=== PATIENT | female | born 1940 | race Caucasian/White ===

== ENCOUNTER 2023-12-26 04:30 | Day surgery (SDC) | payer OTHER ==
[~2023-12-26] VITALS: Ht 154.9 cm; Wt 72.1 kg
[2023-12-26] MEDS ORDERED: ACETAMINOPHEN 500 MG TABLET ONE (04:56)
[2023-12-26] MEDS ORDERED: ONDANSETRON 4 MG ODT TAB ONE (04:56)
[2023-12-26] MEDS ORDERED: GABAPENTIN 400 MG CAPSULE ONE (04:57)
[2023-12-26] MEDS ORDERED: oxyCODONE HCL 10 MG TAB.ER.12H PO ONE ×2 (04:57→05:00)
[2023-12-26] MEDS ORDERED: SCOPOLAMINE HYDROBROMIDE 1 MG PATCH .72 H (TRANSDERM-SCOP) TD ONE (04:57)
[2023-12-26] MEDS ORDERED: CELECOXIB 200 MG CAPSULE ONE (04:57)
[2023-12-26] MEDS: ACETAMINOPHEN 500 MG TABLET PO ONE (05:25)
[2023-12-26] MEDS: SCOPOLAMINE HYDROBROMIDE 1 MG PATCH .72 H (TRANSDERM-SCOP) TD ONE (05:25)
[2023-12-26] MEDS: GABAPENTIN 400 MG CAPSULE PO ONE (05:25)
[2023-12-26] MEDS: CELECOXIB 200 MG CAPSULE PO ONE (05:25)
[2023-12-26] MEDS: ONDANSETRON 4 MG ODT TAB PO ONE (05:25)
[2023-12-26] MEDS: VANCOMYCIN HCL 1,000 MG in NS 250 ML IV ONE (05:30)
[2023-12-26 05:39] VITALS: O2SAT 98
[2023-12-26] MEDS ORDERED: ceFAZolin SODIUM 2 GM in D5W 50 ML IV ONE (07:00)
[2023-12-26] MEDS ORDERED: MIDAZOLAM HCL 2 MG/2 ML VIAL (VERSED) ONE (07:20)
[2023-12-26] MEDS ORDERED: NS IRRIG SOLN 5000 ML IR ONE (07:28)
[2023-12-26] MEDS ORDERED: EPINEPHrine HCL 1 MG/ML VIAL ONE (07:28)
[2023-12-26] MEDS ORDERED: TRANEXAMIC ACID 1,000 MG/10 ML VIAL ONE (07:28)
[2023-12-26] MEDS ORDERED: LR 1,000 ML IV.SOLN IV ONE (07:28)
[2023-12-26] MEDS ORDERED: SEVOFLURANE 15 MIN GAS INH ONE (07:28)
[2023-12-26] MEDS ORDERED: ONDANSETRON HCL 4 MG/2 ML VIAL ONE (07:28)
[2023-12-26] MEDS ORDERED: POLYMYXIN B SULFATE 500,000 UNITS VIAL ONE (07:28)
[2023-12-26] MEDS ORDERED: PROPOFOL 200MG/ 20ML VIAL (DIPRIVAN) IV ONE (07:28)
[2023-12-26] MEDS ORDERED: VANCOMYCIN HCL 1000 MG/VIAL IV ONE (07:28)
[2023-12-26] MEDS ORDERED: ROPIVACAINE HCL/PF 5 MG/ML 0.5% 30 ML VIAL ONE (07:28)
[2023-12-26] MEDS ORDERED: BUPIVACAINE /DEX PF 0.75% SPINAL 2 ML AMP INJ ONE (07:28)
[2023-12-26] MEDS ORDERED: fentaNYL CITRATE/PF 100 MCG/2 ML AMP IVP PRN (08:45)
[2023-12-26] MEDS ORDERED: ONDANSETRON HCL 4 MG/2 ML VIAL IVP PRN ×2 (08:45→10:00)
[2023-12-26] MEDS ORDERED: LR 1,000 ML IV ONE (08:45)
[2023-12-26] MEDS ORDERED: HYDROcodone/ACETAMIN 7.5-325 MG TAB PO PRN (10:00)
[2023-12-26] MEDS ORDERED: fentaNYL CITRATE/PF 100 MCG/2 ML AMP ONE (10:06)
[2023-12-26] MEDS: fentaNYL CITRATE/PF 100 MCG/2 ML AMP IVP PRN ×2 (10:10→10:50)
[2023-12-26] MEDS ORDERED: HYDROcodone/ACETAMIN 5-325 MG TAB (NORCO/ VICODIN) ONE (10:29)
[2023-12-26] MEDS: HYDROcodone/ACETAMIN 5-325 MG TAB (NORCO/ VICODIN) PO PRN (10:33)
[2023-12-26] MEDS ORDERED: HYDROmorphone 1 MG/ML INJ. CARTRIDGE ONE ×2 (11:13→12:52)
[2023-12-26] MEDS: HYDROmorphone 1 MG/ML INJ. CARTRIDGE IVP ONE (11:21)
[2023-12-26] MEDS: HYDROmorphone 1 MG/ML INJ. CARTRIDGE IVP PRN (12:45)
[2023-12-26] MEDS ORDERED: CEFAZOLIN 1 GM IVPB PREMIX 50 ML IV SCH (14:00)
[2023-12-26 16:06] VITALS: BP_SYST 148; PULSE 58; RESP 20
== END 2023-12-26 15:45 | disposition home or self-care (01) ==
LOC: SMU 04:30 → SDS 04:30
PROVIDERS: ATTEND Orthopaedic Surgery
DX: M17.11 Unilateral primary osteoarthritis, right knee (principal); I10 Essential (primary) hypertension; K21.9 Gastro-esophageal reflux disease without esophagitis; E78.5 Hyperlipidemia, unspecified; Z98.890 Other specified postprocedural states; Z79.899 Other long term (current) drug therapy
CPT/HCPCS: 27447; 97162; 86886; 86900; 86901; 36415; 73560; 97110; 97530; 97116; 88305; 88311; 64447; Q0162; J3490 ×2; J0171; J3465; J2405; J2704; J3370; J3010; J1170; J7060; J7120; J7050; C1713 ×2; C1776